=== PATIENT | male | born 1975 | race Caucasian/White ===

== ENCOUNTER 2024-04-19 06:55 | Day surgery (SDC) | payer OTHER ==
[2024-04-19] MEDS: Dextrose 5%-0.45% NaCl 1,000 ML IV SCH (07:16)
[2024-04-19] MEDS ORDERED: fentaNYL 100 MCG/2 ML SDV ONE (07:38)
[2024-04-19] MEDS ORDERED: Midazolam 1 MG/ML 2 ML SDV IV ONE (07:38)
[2024-04-19] MEDS ORDERED: fentaNYL 100 MCG/2 ML SDV IV ONE (07:38)
[2024-04-19] MEDS ORDERED: Midazolam 1 MG/ML 2 ML SDV ONE (07:38)
[2024-04-19] MEDS: fentaNYL 100 MCG/2 ML SDV IV ONE ×5 (08:23→08:43)
[2024-04-19] MEDS: Midazolam 1 MG/ML 2 ML SDV IV ONE ×6 (08:25→08:31)
== END 2024-04-19 10:05 | disposition home or self-care (01) ==
LOC: DL.ENDO 06:55
PROVIDERS: ATTEND Internal Medicine Gastroenterology
DX: Z12.11 Encounter for screening for malignant neoplasm of colon (principal)
CPT/HCPCS: J2250; J3010; J7799